=== PATIENT | female | born 1985 | race Caucasian/White ===

== ENCOUNTER 2017-01-26 19:15 | Inpatient (IN) | payer OTHER ==
[~2017-01-26] VITALS: Ht 154.9 cm; Wt 80.7 kg
[2017-01-26] MEDS ORDERED: Methylergonovine 0.2 mg/mL Inj IM PRN (20:35)
[2017-01-26] MEDS ORDERED: Carboprost 250 mCg/mL Inj IM PRN (20:35)
[2017-01-26] MEDS ORDERED: Oxytocin 10 Unit/mL Inj IM PRN (20:35)
[2017-01-26] MEDS ORDERED: Sodium Chloride LOK Flush 10 mL Syringe IVFLUSH PRN (20:35)
[2017-01-26] MEDS ORDERED: Hemorrhage Kit, Post Partum XX ONE (20:35)
[2017-01-26] MEDS ORDERED: Oxytocin 30 Units/500 mL LR 30 UNITS in IV Premix 1 EACH IV PRN (20:35)
[2017-01-26] MEDS: fentaNYL-PF 50 mCg/mL 2 mL Inj IVPUSH PRN (20:56)
[2017-01-26] MEDS: Lactated Ringer's 1,000 ML IV PRN ×2 (20:58→21:35)
[2017-01-26 21:04] LABS: Mean Corpuscular Hemoglobin 30.9 pg (27.0-35.0); Mean Corpuscular Volume 88.5 fL (81-100)
[2017-01-26] MEDS ORDERED: Lactated Ringer's 500 ML IV ONE (21:28)
[2017-01-26] MEDS: Lactated Ringer's 1,000 ML IV SCH (21:28)
[2017-01-26] MEDS ORDERED: EPHEDrine Sulfate 50 mg/mL Inj IVPUSH PRN (21:30)
[2017-01-26] MEDS ORDERED: Atropine 1 mg/10 mL (Code) Syringe IVPUSH PRN (21:30)
[2017-01-26] MEDS ORDERED: fentaNYL 2 mCg/mL-Bupiv 0.125% 100 ML EPIDURAL SCH (21:30)
--- NOTE | 2017-01-26 23:04 | PCM.HPANE ---
Patient Data Date of Service: Jan 26, 2017 Surgeon Admitting Provider:Norbert Samano MD Attending Provider:Norbert Samano MD Primary Care Physician:Charly Adamson MD Other Provider:Kenny Whitfield Anesthesia Reason for Visit Term Labor Check TERM LABOR CHECK Ht/WT & BMI Body Mass Index Allergies Coded Allergies: No Known Allergies (Unverified , 01/26/17) Diabetes History Hx Diabetes?: No MRSA MRSA: No Medications Hypertension Medication: No History History of ENT Problems?: No Hx of Heart Problems?: Yes Other History/Comments hx of VSD s/p repair at 7 months. No longer follows with cardiology. Had no specific issues related to heart for this or in recent past. Hx of Respiratory Problem?: No Hx Neurologic Problems?: No Hx of GI Problems?: No Hx of Problems?: No Female Hx: Positive for:: Currently Hx Musculoskeletal Problems?: No Stop/Bang Treated for Sleep Apnea?: No Do You Have a CPAP Machine?: No S-Snoring: Do You Snore Loudly: No T-Tired: feel tired, fatigued: No O-Obsered: Observed not breath: No P-Blood Pressure: treated: No B- Body Mass Index > 35 kg/m2: No A- Age over 50: No N- Neck Large Circumference: No G- Gender Male: No SEBASTIAN Risk Assessment: Low Risk, <3 Yes Risk Assessment Category Category 1A: Patient has history of documented sleep apnea, and HAS NOT received any narcotic, sedative or anesthesia administration during this stay. Category 1B: Patient has history of documented sleep apnea, and HAS received any narcotic , sedative or anesthesia administration during this stay Category 2: Patient has SUSPECTED Obstructive Sleep Apnea, and HAS received any narcotic , sedative or anesthesia administration during this stay. Category 3: Patient has SUSPECTED Obstructive Sleep Apnea and HAS NOT received narcotic, sedative or anesthesia administration during this stay. Category 4: Outpatient in Procedural Areas with known sleep apnea or who screen positive for High Risk via the STOP/BANG questionnaire. Exam Exam General Appearance: Oriented X3 HEENT/AIRWAY: MP 2 Lungs: Clear to Auscultation Heart: Exam Unremarkable Meds/Labs/Diagnostics Labs Test 01/26/17 20:50 White Blood Count 14.7th/mm3 (3.8-10.1) Red Blood Count 4.34mil/mm3 (3.90-5.20) Hemoglobin 13.4g/dL (12.0-15.6) Hematocrit 38.4% (35.0-46.0) Mean Corpuscular Volume 88.5fL (81-100) Mean Corpuscular Hemoglobin 30.9pg (27.0-35.0) Mean Corpuscular Hemoglobin Concent 34.9% (32.0-37.0) Red Cell Distribution Width 12.2% (12.3-15.4) Platelet Count 215bil/L (150-400) Plan Impression Patient chart reviewed, patient interviewed and anesthestic plan with risks, benefits, and alternatives discussed, and informed consent obtained. ASA Physical Status: ASA2 Mod Systemic Disease Anesthetic Plan: Epidural Bene/Risks/Altern/Consents: Yes HP Complete Prior to Induction: Yes Armando Zurita MD Jan 26, 2017 23:04
[2017-01-27] MEDS: Lactated Ringer's 1,000 ML IV SCH ×6 (02:28→21:28)
[2017-01-27] MEDS ORDERED: LANOlin HPA 7 Gm Ointment TOPICAL PRN (02:30)
[2017-01-27] MEDS ORDERED: Benzocaine (Dermoplast) 20% 60 Gm Spray TOPICAL PRN (02:30)
[2017-01-27] MEDS ORDERED: TdaP Vaccine 0.5 mL Inj IM ONE (02:30)
[2017-01-27] MEDS ORDERED: Witch Hazel-Glycerin Pads TOPICAL PRN (02:30)
[2017-01-27] MEDS ORDERED: Measles-Mumps-Rubella Vaccine 0.5 mL Inj SUBQ ONE (02:30)
[2017-01-27] MEDS ORDERED: Influenza (Adult) Vaccine 0.5 mL Syringe IM ONE (02:30)
[2017-01-27] MEDS ORDERED: Carboprost 250 mCg/mL Inj IM PRN (02:30)
[2017-01-27] MEDS ORDERED: Methylergonovine 0.2 mg/mL Inj IM PRN (02:30)
[2017-01-27] MEDS ORDERED: Oxytocin 30 Units/500 mL LR 30 UNITS in IV Premix 1 EACH IV PRN (02:30)
[2017-01-27] MEDS ORDERED: HYDROcodone-APAP 5-325 mg Tablet PO PRN (02:30)
[2017-01-27] MEDS ORDERED: Oxytocin 10 Unit/mL Inj IM PRN (02:30)
[2017-01-27] MEDS ORDERED: Hemorrhage Kit, Post Partum XX ONE (02:30)
[2017-01-27] MEDS: Lactated Ringer's 1,000 ML IV PRN (03:17)
--- NOTE | 2017-01-27 03:26 | PROG NOTE ---
[address] [address] PROGRESS NOTE PATIENT: LUCI PABON : 1985 MR#: [id number] ADMIT: 01/26/2017 JOB ID: [id number] [facility] NOTE: DATE: 01/27/2017 SUBJECTIVE: The patient was admitted last evening with a 40-5/7 weeks , in labor, now at 40-6/7 weeks gestational age. Labor progressed, the patient received epidural for anesthesia, and she has learned to push moderately well in the 2nd stage. Head has steadily descended until now. We see a small amount of molded head between the labia. Note, heart tracing has demonstrated some drops most suggestive of umbilical cord stretch or compression intermittently, although with reasonable variability interspersed throughout. I discussed with the patient and family the need to push consistently strong with each contraction, anticipating soon vaginal delivery. Oxygen therapy continues in light of intermittent heart rate drops. Epidural continued for pain management. Vacuum-assisted vaginal delivery could be undertaken if so warranted by significant and/or progressive heart rate drop.
--- NOTE | 2017-01-27 03:37 | HP ---
[address] [address] HISTORY AND PHYSICAL PATIENT: LUCI PABON : 1985 MR#: [id number] ADMIT: 01/26/2017 JOB ID: [id number] [facility] NOTE: DATE: 01/26/2017 at 2330 hour. SUBJECTIVE: The patient is a 31-year-old, AB0, woman, followed prenatally by Dr. Norbert Samano. Due date is January 21, 2017, placing the patient at 40-5/7 weeks of gestation on admission. course has been relatively uncomplicated, note rubella immune status, GBS negative, Rh positive. The patient has gained greater than 40 pounds during the , and note occasional 3rd trimester borderline blood pressure elevation. The patient went into labor early on January 26, 2017, and ultimately presented in the evening of January 26, 2017, for evaluation. She was noted initially to be at 3 cm dilatation, and then progressed to 5 cm dilatation as noted on recheck, and thus she was admitted. PHYSICAL EXAMINATION: Height 61 inches. Last weight in the office 177 pounds. Initial blood pressure 141/82. Maternal heart rate 69. Neck: No thyromegaly. Lungs: Clear to auscultation and percussion. Heart: Regular in rate and rhythm. Abdomen: Fundal height consistent with term. Positive heartbeat. Pelvic examination: Cervix at 5 cm dilatation, 100% effaced, and at -1 station. IMPRESSION: 1. A 40-5/7 weeks gestation. 2. Labor. 3. Increased weight gain in . 4. Borderline blood pressure elevations intermittently in the third trimester. 5. Up to date with flu vaccination and Tdap. 6. Negative group B Strep status. 7. Rubella immune status. 8. Rh positive status. 9. Left hip labral tear, unrepaired at this time. 10. Ventricular septal defect (VSD) repair as an infant, no recurrent problems. 11. History of depression. 12. Surgical history: a. Multiple eye surgeries in the . b. Right shoulder surgery in 2013. 13. Family history of hypertension (grandmother), and twins (mother of baby is a twin, also additional twins on father's side). PLAN: 1. The patient was admitted to [facility] in the evening of January 26, 2017, at post term with labor. 2. Epidural anesthesia will likely be undertaken at the patient's request for pain management. 3. Discussed with family care findings as described, left hip labral tear, also heart valve repair as an infant. 4. Anticipating vaginal .
--- NOTE | 2017-01-27 06:26 | PROG NOTE ---
[address] [address] PROGRESS NOTE PATIENT: LUCI PABON : 1985 MR#: [id number] ADMIT: 01/26/2017 JOB ID: [id number] [facility] NOTE: DATE: 01/27/2017 at 0500 hour. SUBJECTIVE: This patient was admitted to [facility] between 40-1/2 and 41 weeks of gestation, in labor, to have first baby. Ultimately, she reached complete cervical dilatation and she learned to push, moderately well. Head gradually descended, exhausting work, although the patient gave good effort. heart tracing demonstrated some heart rate drops, sometimes variable heart rate deceleration, sometimes some heart rate drop stretches suggestive of cord compression or stretch as the head descended. Reasonable heart rate variability was noted, however scattered throughout the second stage of labor, also with some appropriate episodes of heart rate response to scalp stimulation. I discussed with the patient the potential for vacuum assistance at about 3 hours following onset of 2nd stage pushing as she was running out of energy and progress was extremely slow at that point, and intermittent heart rate drops continued. However, the patient pushed extremely well over the next 15 minutes or so, and brought the head down to position, ready for delivery. Head then delivered, followed directly by the body and extremities. Baby was active and crying, and thus handed to mother for bonding and further nurse management. After a one-minute delay, umbilical cord was clamped and cut, and cord blood was obtained for routine studies. Placenta was expelled intact with membranes. Blood Loss was in the 150cc range. Betadine solution was then used to cleanse the vulvovaginal region. Only laceration was that of shallow midline second degree perineal laceration, repaired. Epidural provided anesthesia during the repair process. At procedure's close, instrument, needle, and sponge counts were all found to be correct. It certainly is anticipated that mother and baby will do very well during the timeframe. MD MIRACLE Basilio
[2017-01-27] MEDS: fentaNYL-PF 50 mCg/mL 2 mL Inj IVPUSH PRN ×2 (16:38→16:39)
[2017-01-27] MEDS: oxyCODONE-Acetamin 5-325 mg Tablet PO PRN ×2 (17:02→21:15)
[2017-01-28 07:03] LABS: Mean Corpuscular Hemoglobin 31.1 pg (27.0-35.0); Mean Corpuscular Volume 91.6 fL (81-100)
--- NOTE | 2017-01-28 07:48 | PCM.DC.OB ---
Obstetrical Discharge Summary Date of Service Jan 28, 2017 Date of hospital admission Jan 26, 2017 at 20:30 Date of Discharge: Jan 28, 2017 Providers Admitting Physician: Norbert Samano MD Primary Care Physician: Charly Adamson MD Attending Physician: Norbert Samano MD Problems: (1) Status post normal vaginal delivery Status: Acute ICD Code: [id number] Consultations None Invasive procedures NVD Date of Procedure: Jan 27, 2017 Hospital Course: Patient presented in labor. Delivered by NVD. Recovered in excellent fashion. Discharge Diet: No restrictions Discharge Activity-General: Pelvic Rest for 6 weeks, Try not to overdue, Balance rest and activity, Activity as pain allows Norbert Samano MD Jan 28, 2017 07:48
--- NOTE | 2017-01-28 07:50 | PCM.DIOB ---
Obstetrical Disch Instruction Date of Service: Jan 27, 2017 Dates of Hospitalization Date of Hospital Admission Jan 26, 2017 at 20:30 Providers Admitting Physician: Norbert Samano MD Primary Care Physician: Charly Adamson MD Attending Physician: Norbert Samano MD Discharge Diagnosis Problems: (1) Status post normal vaginal delivery Status: Acute ICD Code: [id number] Diet Discharge Diet: No restrictions Activity Discharge Activity-General: Pelvic Rest for 6 weeks, Balance rest and activity , Activity as pain allows, Activity as energy allows, No lifting >10 pounds for 4-6 weeks Dressing and Incisional Care Hygiene: May shower, Perineal care, Sitz bath, Dermoplast spray, Witch Liz pads Follow Up Plan Follow-up Provider (F9): Norbert Samano MD Follow-up appointment: Weeks (8) Call your provider for: Fever or Chills, Shortness of breath, Heavy vaginal bleeding, Excessive constipation, Vaginal discomfort, Red painful breasts Norbert Samano MD Jan 28, 2017 07:50
--- NOTE | 2017-01-31 11:07 | PATH ---
SURGICAL PATHOLOGY Attending Physician:Norbert Samano MD CASE STATUS: Signed Out PATIENT NAME: LUCI PABON PID: [id number] : 1985 DATE COLLECTED:01/28/2017 12:38 SPECIMEN: Placenta CLINICAL HISTORY: FEVER IN LABOR, DUE TO FEVER IN LABOR 1. PLACENTA FINAL DIAGNOSIS: 1.PLACENTA (452 GRAMS): MATURE PLACENTA WITH NO EVIDENCE OF CHORIOAMNIONITIS OR FUNISITIS. ICD10 CODE 075.2 GROSS DESCRIPTION: The specimen is received unfixed, labeled with the patient's name and consists of an intact placenta and includes placental disc (452 g, 24.2 x 20.5 x 2.2 cm), umbilical cord (length-12.8 cm, diameter-1.1 x 0.8 cm) and membranes. The membranes are ruptured 11.5 cm from the free edge of the placenta and are semi-translucent. The umbilical cord is has a furcate insertion 5.5 cm from the edge of the placenta and contains 3 vessels. The surface is smooth and shiny with no evidence of meconium identified. The maternal surface is dark maroon with normal cotyledon formation. The placental disc is spongy with no hematomas, infarcts, nodules, masses, or lesions identified. Section code: (A) edge of placenta with membranes, umbilical cord; (B-D) placenta, 3 full thickness sections. Note: Formalin added 1100. 01/29/17 JM MICRO DESCRIPTION: See diagnosis. ICD-9 CODES: CPT CODES: 1: 24932 Electronically Signed Out Rob Joya MD [facility] [address], [place] [address] Technical component performed at [facility], [facility] [address], [place], [address]
== END 2017-01-28 10:21 | disposition home or self-care (01) | DRG 775 ==
LOC: FBCO 19:15 → FBC 20:30
PROVIDERS: ADMIT Family Medicine; ATTEND Family Medicine
PROC: 10E0XZZ Delivery of Products of Conception, External Approach (ICD-10-PCS; principal; 2017-01-27)
PROC: 0KQM0ZZ Repair Perineum Muscle, Open Approach (ICD-10-PCS; 2017-01-27)
DX: O70.1 Second degree perineal laceration during delivery (principal); Z37.0 Single live birth; O26.03 Excessive weight gain in pregnancy, third trimester; Z3A.40 40 weeks gestation of pregnancy; O76 Abnormality in fetal heart rate and rhythm complicating labor and delivery